=== PATIENT | female | born 1945 | race Caucasian/White ===

== ENCOUNTER 2022-06-30 19:41 | Emergency (ER) | payer OTHER ==
--- OUTSIDE RECORDS SUMMARY | 2022-06-30 19:46 | XMS REPORT | Continuity of Care Document ---
:1945 Author Organization [facility] t Address [address] [place] [address] Care Team Providers Name Role Phone Ephraim Anaya MD Primary Care Physician ARIANA MONTANA Attending Clinician Unavailable Ephraim Anaya MD Attending Clinician [facility] Attending Clinician Unavailable Kena Brody DO Attending Clinician [phone] Neha Cuevas Attending Clinician [phone] Evelyn Blake Attending Clinician [phone] Izzy Martinez PT Attending Clinician Unavailable Kavitha Kessler PT Attending Clinician Unavailable Jose A Jacobsen MA Attending Clinician Unavailable Carlos Le V Attending Clinician Unavailable Christine Morley DO Attending Clinician Hernán Epstein MD Attending Clinician SAMUEL REMY Attending Clinician Unavailable Jaron Attending Clinician Unavailable Rahul Attending Clinician Unavailable Samuel Remy MD Attending Clinician LAB08 Attending Clinician Unavailable Abeba Carrillo MA Attending Clinician Unavailable Meli Lund RN Attending Clinician Unavailable Ursula Colon Attending Clinician NAN, BENNET, M.D. Attending Clinician Unavailable JUANCARLOS RAZA M.D. Attending Clinician Unavailable HERBER PICHARDO M.D. Attending Clinician Unavailable SE, ECHO Attending Clinician Unavailable STEVE_EDWARDLATRICE_RobertoM Admitting Clinician Unavailable Physician, No Primary or Family Admitting Clinician Unavaila ricky Fulton_H Admitting Clinician Unavailable Rahul Admitting Clinician Unavailable Payers Payer Name Policy Type Policy Number Effective Date Expiration Date S samuel MEDICARE PART A [id number] 2011 AND B 00:00:00 [place]ICARE B-[place]: [id number] 2011 [employer] 00:00:00 MUTUAL PALOMA [id number] 2021 (MEDICARE 00:00:00 SUPPLEMENT) KCA MAPD - O 7 [id number] 2021 2020 R2T 00:00:00 Problems Condition Condition Condition Status Onset Resolution Last Treating Co mments Source Name Details Category Date Date Treatment Clinician Date Right-side Right-side Disease Active U T d low back d low back 04-18 He alth pain pain 00:00: without without 00 sciatica sciatica Encounter Encounter Disease Active [facility] for for 04-18 Health screening screening 00:00: for for 00 coronary coronary artery artery disease disease Hypertensi Hypertensi Disease Active U T ve heart ve heart 04-18 Health disease disease 00:00: without without 00 heart heart failure failure Strain of Strain of Disease Active [facility] thoracic thoracic 5-16 st spine spine 00:00: Hospita 00 l Mid back Mid back Disease Active Metho di pain on pain on 5-16 st left side left side 00:00: Hosp jamar 00 l Back Back Disease Active [facility] muscle muscle 5-16 st spasm spasm 00:00: Hospita 00 l Prediabete Prediabete Disease Active M ethodi s s 5-10 st 00:00: Hospita 00 l Rib pain Rib pain Disease Active Metho di on left on left 4-20 st side side 00:00: Hospita 00 l Hypertensi Hypertensi Disease Active K elsey on on 06-23 Seybold 00:00: 00 Hypothyroi Hypothyroi Disease Active M ethodi dism dism 06-23 st 00:00: Hospita 00 l Disorder Disorder Disease Active [facility] of thyroid of thyroid 06-17 He alth 00:00: 00 Chronic Chronic Disease Active [facility]i venous venous 06-17 st insufficie insufficie 00:00: Ho spita ncy ncy 00 l Dyslipidem Dyslipidem Disease Active M ethodi ia ia 06-17 st 00:00: Hospita 00 l Essential Essential Disease Active Met hodi (primary) (primary) 06-17 st hypertensi hypertensi 00:00: Ho spita on on 00 l Left Left Disease Active [facility] ventricula ventricula 06-17 st r r 00:00: Hospita hypertroph hypertroph 00 l y y Plantar Plantar Problem Active 2015-06-19 M emoria Fasciitis Fasciitis 02:45:49 l Active Jose Problem 06/19/2015 [facility] History of History of Problem Resolve UT Osteoarthr Osteoarthr d Ph ysici itis itis ans History of History of Problem Resolve UT essential essential d Phys ici hypertensi hypertensi an s on on History of History of Problem Resolve UT hypothyroi hypothyroi d Ph ysici dism dism ans Essential Essential Problem Active UT (primary) (primary) Phys ici hypertensi hypertensi an s on on Disorder Disorder Problem Active [facility] of thyroid of thyroid Ph ysici ans Left Left Problem Active UT ventricula ventricula Ph ysici r r ans hypertroph hypertroph y y Dyslipidem Dyslipidem Problem Active U T ia ia Physici ans Chronic Chronic Problem Active UT venous venous Physici insufficie insufficie an s ncy ncy Achilles - Achilles Problem Active 2015-06-19 Memoria Equinus - Equinus 02:45:49 l Active Jeddo Problem 06/19/2015 [facility] Instabilit Instabili Problem Active 2015-06-19 Memoria y Foot ty Foot 02:45:49 l Joint Joint Jeddo Active Problem 06/19/2015 [facility] Allergies, Adverse Reactions, Alerts Allergy Allergy Status Severity Reaction(s) Onset Inactive Treating Comm ents Source Name Type Date Date Clinician No Known DA Active [facility] Family History Family Member Diagnosis Comments Start Date Stop Date Source Mother Family history of [facility] Natural brother Cancer [facility] Natural father No Known Problems [facility] Natural mother Cancer [facility] Family member Heart disease [facility] Social History Social Habit Start Date Stop Date Quantity Comments Source Exposure to Not sure Griselda rivas SARS-CoV-2 (event) History [facility] Drinks History [facility] Tobacco use and 2022-04-18 2022-04-18 Smokeless tobacco [facility] exposure 00:00:00 00:00:00 non-user Alcohol intake 2022-03-14 2022-03-14 Lifetime [facility] 00:00:00 00:00:00 non-drinker Hospital (finding) History SDOH 2021-01-08 2021-01-08 1 [facility] Alcohol Frequency 00:00:00 00:00:00 Hospita l Jessie? 2015-03-18 2015-03-18 [facility] 00:00:00 00:00:00 Sex [birth year] [facility] 00:00:[facility] 00:00:00 Hospital Smoking Status Start Date Stop Date Source Never smoked tobacco [facility] Unknown if ever smoked [facility] Medications Ordered Filled Start Stop Current Ordering Indication Dosage Frequency Signature Comments Components Source Medication Medication Date Date Medication? Clinician (SIG) Name Name traMADol-ac 2021- No [id number] 1{tbl} Q8H Take 1 [facility] etaminophen 04-21 07-14 tablet by (Ultracet) 00:00: 04:59 mouth Hospi ta 37.5-325 mg 00 :00 every 8 l per tablet (eight) hours as needed for moderate pain for up to 5 days .acute pain. Aspirin Yes 1{tbl} QD Take 1 UT Buf,CaCarb- 7-05 tablet by [facility] MgCarb-MgO, 10:49: mouth 1 81 MG 55 (one) time tablet each day. levothyroxi Yes 100ug QD Take 100 U T ne 7-05 mcg by [facility] (Synthroid, 10:49: mouth 1 Levoxyl) 55 (one) time 100 MCG each day. tablet cyclobenzap 2021- Yes [id number] 5mg Q.[id number] Take 1 UT rine 7-05 07-20 [id number] tablet (5 Hea lth (Flexeril) 00:00: 04:59 3D mg total) 5 MG tablet 00 :00 by mouth 3 (three) times a day if needed for muscle spasms for up to 14 days. traMADol-[place] 2021- [place] [id number] 1{tbl} Q6H Take 1 Methodi etaminophen 6-14 06-[address] (ULTRACET) 16:30: 00:00 mouth Hospi ta 37.5-325 mg 02 :00 every 6 l per tablet (six) hours as needed for moderate pain .acute pain. traMADol-ac 2021- No TAKE 1 Met hodi etaminophen 6-14 06-[address] (ULTRACET) 00:00: 04:59 MOUTH 8 Hos john 37.5-325 mg 00 :00 HOURS l per tablet NEEDED FOR PAIN WITH FOOD losartan-hy Yes [id number] 1{tbl} QD Take 1 UT droCHLOROth 6-08 tablet by Hea lth iazide 00:00: mouth 1 (Hyzaar) 00 (one) time 50-12.5 MG each day. tablet Must keep 04/18/22 appointmen t. No further refills will be provided losartan Yes 100mg QD Take 100 Meth angelica (COZAAR) 5-[address] 100 MG 14:41: mouth Hospita tablet 41 daily. l levothyroxi Yes 100ug QD Take 100 M ethodi ne 5-[address] (SYNTHROID) 14:41: mouth Hospi ta 100 mcg 41 daily. l tablet nitrofurant 2021- No [id number] 100mg Q.5D Take 1 Methodi oin, 5-31 06-[address] macrocrysta 00:00: 04:59 (100 mg Ho spita l-monohydra 00 :00 total) by l te, mouth 2 (Macrobid) (two) 100 MG times a capsule day for 5 days. phenazopyri 2021- No [id number] 200mg Q.10025864 Take 1 Methodi dine 5-31 06-[id number] (Pyridium) 00:00: 04:59 3D (200 mg Hos john 200 MG 00 :00 total) by l tablet mouth 3 (three) times a day as needed for bladder spasms for up to 3 days. traMADol-ac 2021- [place] [id number] 1{tbl} Q8H Take 1 Methodi etaminophen 5-18 05-[address] (Ultracet) 00:00: 04:59 mouth Hospi ta 37.5-325 mg 00 :00 every 8 l per tablet (eight) hours as needed for moderate pain (with food) for up to 7 days .acute pain. gabapentin Yes [id number] 300mg QD Take 1 Methodi (Neurontin) 5-[address] 300 mg 00:00: (300 mg Hospita capsule 00 total) by l mouth nightly. meloxicam Yes [id number] 15mg QD Take 1 M ethodi (Mobic) 15 5-10 tablet (15 st mg tablet 00:00: mg total) Hos john 00 by mouth l every morning. WITH food PRN back pain acetaminoph 2021- No [id number] 1{tbl} Q6H Take 1 Methodi en-codeine 4-21 -[address] (TYLENOL 00:00: 04:59 mouth Hospita WITH 00 :00 every 6 l CODEINE #3) (six) 300-30 mg hours as per tablet needed for moderate pain for up to 5 days .acute pain. keTOROlac 2021- No 10mg Q.[id number] Take 1 Methodi (TORadol) 4-20 -26 [id number] tablet (10 st 10 mg 00:00: 04:59 3D mg total) Hospit a tablet 00 :00 by mouth 3 l (three) times a day for 5 days. Tramadol 2020-10 Yes 50mg Take 50 mg Gaurav sey HCl 50 MG 0-13 by mouth Seybol d oral Tablet 14:38: as needed 57 for pain Losartan 2020-10 Yes 1{tbl} Take 1 Kelse y Potassium-H 0-13 tablet by Sey bold CTZ 50-12.5 14:38: mouth MG oral 48 daily Tablet Multiple 2020-10 Yes 1{tbl} Take 1 Kelse y Vitamins-Mi 0-13 tablet by Sey bold nerals 14:38: mouth (CENTRUM 48 daily SILVER 50+WOMEN OR) Aspirin 81 2020-10 Yes 1{capsu Take 1 Ke lsey MG oral 0-13 le} capsule by Seybol d Capsule 14:38: mouth 48 daily Simvastatin Yes [id number] 20mg Take 1 Griselda 20 MG oral 9-28 tablet (20 Sey bold Tablet 00:00: mg total) 00 by mouth daily Levothyroxi 2020- No 100ug Take 100 Griselda ne Sodium 06-23- mcg by Seybold 100 MCG 10:21: 00:00 mouth oral Tablet 46 :00 daily Losartan 2020- No 100mg Take 100 Gaurav sey Potassium 06-23- mg by Seybold 100 MG oral 10:08: 00:00 mouth Tablet 22 :00 daily Tramadol Yes 50mg Take 50 mg Gaurav sey HCl 50 MG 06-23 by mouth Seybol d oral Tablet 09:59: as needed 50 for pain Losartan Yes 1{tbl} Take 1 Kelse y Potassium-H - tablet by Isreal bold CTZ 50-12.5 09:59: mouth MG oral 43 daily Tablet Multiple Yes 1{tbl} Take 1 Kelse y Vitamins-Mi 9- tablet by Sey bold nerals 09:59: mouth (CENTRUM 43 daily SILVER 50+WOMEN OR) Aspirin 81 Yes 1{capsu Take 1 Ke lsey MG oral 9 le} capsule by Seybol d Capsule 09:59: mouth 43 daily Levothyroxi Yes [id number] 100ug Take 1 Griselda ne Sodium - tablet Seybold 100 MCG 00:00: (100 mcg oral Tablet 00 total) by mouth daily Levothyroxi Yes [id number] 100ug Take 1 Griselda ne Sodium - tablet Seybold 100 MCG 00:00: (100 mcg oral Tablet 00 total) by mouth daily Aspirin Yes 1{tbl} QD Take 1 UT Buf,CaCarb- 8-25 tablet by [facility] MgCarb-MgO, 19:49: mouth 1 81 MG 35 (one) time tablet each day. levothyroxi Yes 100ug QD Take 100 U T ne 8-25 mcg by Health (Synthroid, 19:49: mouth 1 Levoxyl) 35 (one) time 100 MCG each day. tablet losartan-hy Yes [id number] 1{tbl} QD Take 1 UT droCHLOROth 6-25 tablet by [facility] iazide 00:00: mouth 1 (Hyzaar) 00 (one) time 50-12.5 MG each day. tablet losartan-hy Yes [id number] 1{tbl} QD Take 1 UT droCHLOROth 6-25 tablet by [facility] iazide 00:00: mouth 1 (Hyzaar) 00 (one) time 50-12.5 MG each day. tablet losartan Yes 100mg QD Take 100 Meth angelica (COZAAR) 3-[address] 100 MG 00:03: mouth Hospita tablet 30 daily. l levothyroxi Yes 100ug QD Take 100 M ethodi ne 3-[address] (SYNTHROID) 00:03: mouth Hospi ta 100 mcg 30 daily. l tablet nitrofurant 2020- No 100mg Q.5D Take 1 Me thodi oin, 3 04-[address] macrocrysta 00:00: 04:59 (100 mg Ho spita l-monohydra 00 :00 total) by l te, mouth 2 (MACROBID) (two) 100 MG times a capsule day for 10 days. traMADoL 2020- No [id number] 50mg Q6H Take 1 Metho di (ULTRAM) 50 327 03-31 tablet (50 s t mg tablet 00:00: 04:59 mg total) Ho spita 00 :00 by mouth l every 6 (six) hours as needed for moderate pain for up to 3 days .acute pain. traMADol traMADol Yes TURF KEEPER Q0.3333D TAKE 1 UT HCl - 50 MG HCl - 50 MG 2-22 TABLET 3 Physici Oral Tablet Oral Tablet 00:00: TIMES ans 00 DAILY NEEDED. traMADol Yes 50mg Q.[id number] Take 50 mg UT (Ultram) 50 2- [id number] by mouth 3 Health MG tablet 00:00: 3D (three) 00 times a day. traMADol 2021- No 50mg Q.[id number] Take 50 mg UT (Ultram) 50 2- 07-05 [id number] by mouth 3 Health MG tablet 00:00: 00:00 3D (three) 00 :00 times a day. losartan-hy 2020- No 1{tbl} QD Take 1 U T droCHLOROth 12-06 06-25 tablet by Elijah montez iazide 00:00: 00:00 mouth 1 (Hyzaar) 00 :00 (one) time 50-12.5 MG each day. tablet Voltaren-XR Yes Ruddy 1 tablet Memoria 06-18 Thao l 00:00: Jeddo 00 Voltaren-XR Yes Ruddy 1 tablet Memoria 06-18 Thao l 00:00: Jose 00 Losartan Losartan Yes BENNET TAKE 1 U T Potassium-H Potassium-H 11-15 NAN TABLET Physici CTZ 50-12.5 CTZ 50-12.5 00:00: M.D. Daily ans MG Oral MG Oral 00 MUST Tablet Tablet MAKE APPOINTMEN T FOR MORE REFILLS Levothyroxi Levothyroxi Yes TURF KEEPER 1 QD TAKE 1 UT ne Sodium ne Sodium TABLET Phy sici 100 MCG 100 MCG DAILY. ans Oral Tablet Oral Tablet Aspirin 81 Aspirin 81 Yes TURF KEEPER 1 QD TAKE 1 U T MG TABS MG TABS TABLET Physici DAILY. ans Immunizations Ordered Immunization Filled Immunization Date Status Commen ts Source Name Name Pneumococcal Vaccine, 2021-07-27 Completed Gaurav Beasleyold Polysaccharide 00:00:00 Pneumococcal 2021-07-27 Completed [facility] Polysaccharide 00:00:00 [facility] PFIZER COVID-19 MRNA 2021-07-19 Completed Meth odist VACCINATION 00:00:00 [facility] Influenza Virus 2021-06-23 Completed Griselda singh Vaccine, 00:00:00 Quadrivalent, High Dose, Age 65 And Up Influenza Virus 2021-06-23 Completed Griselda singh Vaccine, 00:00:00 Quadrivalent, High Dose, Age 65 And Up Influenza, 2021-06-23 Completed [facility] Unspecified 00:00:00 Hospital PFIZER COVID-19 MRNA 2020-12-11 Completed Meth odist VACCINATION 00:00:00 Hospital PFIZER COVID-19 MRNA 2020-11-20 Completed Meth odist VACCINATION 00:00:00 [facility] Influenza Virus 2017-07-31 Completed Griselda Se ybold Vaccine, Quad, Egg 00:00:00 Free Influenza Virus 2017-07-31 Completed Griselda Se ybold Vaccine, Quad, Egg 00:00:00 Free FLUBLOK QUAD PF 2017-07-31 Completed [facility] 00:[facility]:00 [facility] Vital Signs Vital Name Observation Time Observation Value Comments Source Body height 2022-04-18 170.2 cm [facility] 15:50:00 Body weight 2022-04-18 79.833 kg [facility] 15:50:00 BMI 2022-04-18 27.57 kg/m2 [facility] 15:50:00 Systolic blood 2022-04-18 137 mm[Hg] [facility] pressure 15:50:00 Diastolic blood 2022-04-18 85 mm[Hg] [facility] pressure 15:50:00 Heart rate 2022-04-18 81 /min [facility] 15:50:00 Systolic blood 2021-07-27 144 mm[Hg] Griselda Seybol d pressure 19:37:00 Diastolic blood 2021-07-27 70 mm[Hg] Griselda Seybo ld pressure 19:37:00 Heart rate 2021-07-27 82 /min Griselda Seybold 19:37:00 Body temperature 2021-07-27 36.72 Celsa Griselda Duarteyb old 19:37:00 Respiratory rate 2021-07-27 18 /min Griselda Duarteyb old 19:37:00 Body height 2021-07-27 170.2 cm Griselda Seybold 19:37:00 Body weight 2021-07-27 79.833 kg Griselda Seybold 19:37:00 BMI 2021-07-27 27.57 kg/m2 Griselda Seybold 19:37:00 Systolic blood 2021-06-23 159 mm[Hg] Griselda Seybol d pressure 15:04:00 Diastolic blood 2021-06-23 76 mm[Hg] Griselda Seybo ld pressure 15:04:00 Heart rate 2021-06-23 87 /min Griselda Valencia 15:04:00 Body temperature 2021-06-23 36.67 Celsa Griselda Beasley old 15:04:00 Respiratory rate 2021-06-23 16 /min Griselda Beasley old 15:04:00 Body height 2021-06-23 170.2 cm Griselda Valencia 15:04:00 Body weight 2021-06-23 78.019 kg Griselda Valencia 15:04:00 BMI 2021-06-23 26.94 kg/m2 Griselda Valencia 15:04:00 Body weight 2022-03-14 78.472 kg [facility] 19:49:00 [facility] BMI 2022-03-14 27.10 kg/m2 [facility] 19:49:00 Hospital Oxygen saturation 2022-03-14 98 /min [facility] in Arterial blood 19:49:00 Hospital by Pulse oximetry Systolic blood 2022-03-14 129 mm[Hg] [facility] pressure 19:49:00 Hospital Diastolic blood 2022-03-14 82 mm[Hg] [facility] pressure 19:49:00 Hospital Heart rate 2022-03-14 100 /min [facility] 19:49:00 Hospital Body temperature 2022-03-14 36.44 Celsa [facility] 19:49:00 Hospital Body height 2022-03-14 170.2 cm [facility] 19:49:00 [facility] Respiratory rate 2022-02-02 16 /min [facility] 17:04:24 [facility] Systolic blood 2021-01-09 157 mm[Hg] [facility] pressure 02:52:35 Hospital Diastolic blood 2021-01-09 77 mm[Hg] [facility] pressure 02:52:35 Hospital Heart rate 2021-01-09 67 /min [facility] 02:52:35 Hospital Body temperature 2021-01-09 36.61 Celsa [facility] 02:52:35 Hospital Respiratory rate 2021-01-09 16 /min [facility] 02:52:35 Hospital Oxygen saturation 2021-01-09 98 /min [facility] in Arterial blood 02:52:35 Hospital by Pulse oximetry Body height 2021-01-09 170.2 cm [facility] 00:01:00 Hospital Body weight 2021-01-09 78.472 kg [facility] 00:01:00 Hospital BMI 2021-01-09 27.10 kg/m2 [facility] 00:[facility]:00 [facility] Systolic blood 2020-12-06 128 mm[Hg] [facility] L[facility] pressure 15:06:00 Position: Sitting Diastolic blood 2020-12-06 83 mm[Hg] [facility] pressure 15:06:00 Position: Sitting Body height 2020-12-06 67 [in_us] [facility] 15:06:00 Weight 2020-12-06 178 [lb_av] [facility] 15:06:00 Body mass index 2020-12-06 27.88 kg/m2 [facility] (BMI) [Ratio] 15:06:00 Heart Rate 2020-12-06 89 /min Location: L [facility] 15:06:00 Radial; Quality: Normal BP Systolic 2019-06-17 166 mm[Hg] Location: RUE; [facility] 09:25:00 Position: Sitting BP Diastolic 2019-06-17 86 mm[Hg] Location: RUE; [facility] 09:25:00 Position: Sitting Height 2019-06-17 67 [in_us] [facility] 09:25:00 Weight 2019-06-17 179 [lb_av] [facility] 09:25:00 Body Mass Index 2019-06-17 28.04 kg/m2 [facility] Calculated 09:25:00 Heart Rate 2019-06-17 75 /min Location: L [facility] 09:25:00 Radial; Quality: Normal BP Systolic 2018-11-08 130 mm[Hg] [facility] 11:05:00 BP Diastolic 2018-11-08 80 mm[Hg] [facility] 11:05:00 Height 2018-11-08 67 [in_us] [facility] 11:05:00 Weight 2018-11-08 178 [lb_av] [facility] 11:05:00 Body Mass Index 2018-11-08 27.88 kg/m2 [facility] Calculated 11:05:00 Heart Rate 2018-11-08 84 /min [facility] 11:05:00 BP Systolic 2018-04-02 140 mm[Hg] [facility] 10:29:00 BP Diastolic 2018-04-02 82 mm[Hg] [facility] 10:29:00 Height 2018-04-02 67 [in_us] [facility] 10:29:00 Weight 2018-04-02 188 [lb_av] [facility] 10:29:00 Body Mass Index 2018-04-02 29.45 kg/m2 [facility] Calculated 10:29:00 Heart Rate 2018-04-02 82 /min [facility] 10:29:00 Procedures Procedure Date / Time Performing Clinician Source Performed ECG 12-LEAD 2022-04-18 16:25:28 Chris Montananet [facility] URINE CULTURE 2022-03-14 20:03:00 [facility] XR THORACIC SPINE 3 VW 2022-02-23 14:23:00 [facility] CT CHEST WO CONTRAST 2022-02-01 20:18:24 Hernán Epstein [facility] CT ABDOMEN PELVIS WO 2021-01-09 01:56:34 [facility] CONTRAST ECG ED PRELIMINARY 2021-01-09 00:18:20 [facility] INTERPRETATION HC COMPLETE BLD COUNT 2021-01-09 00:15:00 [facility] W/AUTO DIFF COMPREHENSIVE METABOLIC 2021-01-09 00:15:00 [facility] PANEL URINALYSIS 2021-01-09 00:15:00 [facility] ESTIMATED GFR 2021-01-09 00:15:00 [facility] [QL] B TYPE NATRIURETIC 2020-12-06 00:00:00 [facility] PEPTIDE (BNP) [QLH] B TYPE NATRIURETIC 2018-04-02 00:00:00 [facility] PEPTIDE (BNP) [QLH] CBC (INCLUDES 2018-04-02 00:00:00 [facility] DIFF/PLT) [QLH] CMP W/EGFR 2018-04-02 00:00:00 [facility] [QLH] HEMOGLOBIN A1c 2018-04-02 00:00:00 [facility] [QLH] LIPID PANEL 2018-04-02 00:00:00 [facility] [QL[facility]] MAGNESIUM 2018-04-02 00:00:00 [facility] [QL[facility]] TSH, 3RD GENERATION 2018-04-02 00:00:00 [facility] History of Thyroid [facility] History of Knee Surgery [facility] Plan of Care Planned Activity Planned Date Details Comments Source Future Scheduled 2022-06-27 HEPATITIS B VACCINES [facility] Test 10:33:28 (1 of 3 - 3-dose series) [code = HEPATITIS B VACCINES (1 of 3 - 3-dose series)] Future Scheduled 2022-06-27 Hepatitis C screening [facility] Test 10:33:28 (procedure) [code = 824370388] Future Scheduled 2022-06-27 [facility]CER [facility] Test 10:33:28 SCREENING [code = BREAST CANCER SCREENING] Future Scheduled 2022-06-27 COLONOSCOPY SCREENING [facility] Test 10:33:28 [code = COLONOSCOPY SCREENING] Future Scheduled 2022-06-27 SHINGLES VACCINES (1 [facility] Test 10:33:28 of 2) [code = SHINGLES VACCINES (1 of 2)] Future Scheduled 2022-06-27 COVID-19 VACCINE (4 - [facility] Test 10:33:28 Booster for Pfizer series) [code = COVID-19 VACCINE (4 - Booster for Pfizer series)] Future Scheduled 2022-06-27 INFLUENZA VACCINE [facility] Test 10:33:28 [code = INFLUENZA VACCINE] Future Scheduled 2022-06-27 65+ [facility]UMOCOCCAL [facility] Test 10:33:28 VACCINE (2 - PCV) [code = 65+ PNEUMOCOCCAL VACCINE (2 - PCV)] Future Scheduled COVID-19 VACCINE (1) [facility] Test [code = COVID-19 VACCINE (1)] Future Scheduled Hepatitis C screening [facility] Test (procedure) [code = 224077030] Future Scheduled BREAST CANCER [facility] Test SCREENING [code = BREAST CANCER SCREENING] Future Scheduled COLONOSCOPY SCREENING [facility] Test [code = COLONOSCOPY SCREENING] Future Scheduled SHINGLES VACCINES (#1) [facility] Test [code = SHINGLES VACCINES (#1)] Future Scheduled 65+ [facility]UMOCOCCAL [facility] Test VACCINE (1 of 1 - PPSV23) [code = 65+ PNEUMOCOCCAL VACCINE (1 of 1 - PPSV23)] Future Scheduled INFLUENZA VACCINE [facility] Test [code = INFLUENZA VACCINE] Encounters Start End Encounter Admission Attending Care Care Encounter Source Date/Time Date/Time Type Type Clinicians Facility Department ID 2022-05-10 [facility] [id number] [place] 03:17:44 [place] [id number] [facility] 2022-05-09 Outpatient [facility] [id number] [place] 12:08:08 [id number] [facility] 2022-04-18 Outpatient NAN, [facility] [id number] [place] 10:41:44 [facility] [id number] [facility] 2022-04-10 Outpatient [facility] [id number] [place] 11:20:58 [id number] [facility] 2022-02-14 Outpatient [facility] [id number] [place] 10:10:17 [id number] [facility] 2021-02-19 Outpatient NAN, [facility] [id number] [place] 03:37:15 [facility] 2022-06-26 2022-06-26 Telephone Anaya, [id number] [facility] 00:00:00 00:00:00 Ephraim 13394.1.1 186 s t [place] 3.430.2.7 Hospit a .[id number] l .8 2022-06-26 2022-06-26 Travel 1.2.840.1 [id number] Methodi 00:00:00 00:00:[address] 3.430.2.7 0.2.7.3.698 Ho spita .[id number] 084.8 l .8 2022-06-18 2022-06-18 Outpatient [facility] PRIV PRIV [id number] [facility] 00:00:00 00:00:00 _Marisol [id number] [facility] 2022-06-09 2022-06-09 Outpatient [facility] PRIV PRIV [id number] [facility] 00:00:00 00:00:00 _Marisol [id number] [facility] 2022-06-07 2022-06-07 Orders Fidencio, 1.2.840.1 [id number] 28288 Methodi 00:00:00 00:00:00 Only Kena 32691.1.[address] [place] 3.430.2.7 Hospit a .3.030632 l .8 2022-06-07 2022-06-07 Refill Fidencio, 1.2.840.1 [id number] 02993 82651 Methodi 00:00:00 00:00:[address] [place] 3.430.2.7 Hospit a .3.241610 l .8 2022-05-29 2022-05-29 Outpatient _[facility] PRIV PRIV 237 [id number] [facility] 00:00:00 00:00:00 _Marisol [id number] [facility] 2022-05-21 2022-05-21 Outpatient _[facility] PRIV PRIV 237 [id number] [facility] 00:00:00 00:00:00 _Miller-Cristhian [id number] [facility] 2022-04-25 2022-04-25 Refirwin Anaya, 1.2.840.1 [id number] 2113 Methodi 00:00:00 00:00:00 Baldomerodenisse 99155.1.1 208 s t Rolanda 3.430.2.7 Hospit a .3.809681 l .8 2022-04-21 2022-04-21 Korin Brody, 1.2.840.1 [id number] 63519 37059 Methodi 00:00:00 00:00:00 Only Kena 25911.1.[address] [place] 3.430.2.7 Hospit a .3.884062 l .8 2022-04-21 2022-04-21 Refirwin Brody, 1.2.840.1 [id number] 83962 04534 Methodi 00:00:00 00:00:[address] [place] 3.430.2.7 Hospit a .3.900095 l .8 2022-04-18 2022-04-18 [facility] 1.2.840.114 [id number] 320 [place] 10:30:00 10:45:00 Visit [facility] 350.1.13.58 [place] [place] 2 9.2.7.2.686 [id number] 1 2022-04-18 2022-04-18 Travel 1.2.840.1 1.2.122.996 9376 350192 Methodi 00:00:00 00:00:[address] 3.430.2.7 0.2.7.3.698 Ho spita .3.654668 084.8 l .8 2022-04-14 2022-04-14 Outpatient [facility] PRIV PRIV 237 [id number] [facility] 11:36:00 11:36:00 _Marisol [id number] [facility] 2022-04-14 2022-04-14 Outpatient Mason, PRIV PRIV [id number] 00:00:00 00:00:00 [id number] 2022-04-13 2022-04-13 Outpatient [facility] PRIV PRIV 237 [id number] [facility] 09:57:00 09:57:00 _Marisol [id number] [facility] 2022-04-13 2022-04-13 Outpatient [facility] PRIV PRIV 573 [id number] 00:00:00 00:00:00 Evelyn castanon [id number] Chelita [id number] 2022-04-11 2022-04-11 Outpatient [facility] PR[facility] PRIV 237 [id number] [facility] 01:14:00 01:14:00 _Marisol [id number] [facility] 2022-04-11 2022-04-11 Outpatient [facility] PRIV PRIV [id number] 00:00:00 00:00:00 Evelyn castanon [id number] Cook [id number] 539207 2229-06-27 2022-04-10 Outpatient [facility] PRIV PRIV 237 [id number] [facility] 03:07:00 03:07:00 _Marisol [id number] [facility] 2022-04-03 2022-04-03 Treatment Kena Brody 1.2.840.1 [id number] Methodi 13:45:00 14:30:00 Izzy Martinez 20116.1.[address] 3.430.2.7 Hospit a .3.860122 l .8 2022-04-03 2022-04-03 Travel 1.2.840.1 1.2.775.599 2216 683538 Methodi 00:00:00 00:00:[address] 3.430.2.7 0.2.7.3.698 Ho spita .3.493368 084.8 l .8 2022-04-03 2022-04-03 Outpatient BRODY, [facility] [id number] 5034 [place] 00:00:00 00:00:00 KENA [address] 2022-03-29 2022-03-29 Evaluation BrodyKena castrejon 1.2.840. 1 [id number] Methodi 11:00:00 12:00:00 Kavitha Kessler [address]87.[address] 3.430.2.7 Hospit a .3.312393 l .8 2022-03-29 2022-03-29 Plan of 1.2.840.1 [id number] [id number] 1683 Methodi 00:00:00 00:00:[address] Documentat 3.430.2.7 Hos john ion .3.660735 l .8 2022-03-29 2022-03-29 Travel 1.2.840.1 1.2.492.821 5422 016852 Methodi 00:00:00 00:00:[address] 3.430.2.7 0.2.7.3.698 Ho spita .3.260796 084.8 l .8 2022-03-29 2022-03-29 Outpatient BRODY, [facility] [id number] 4196 [place] 00:00:00 00:00:00 KENA [address] 2022-03-28 2022-03-28 Orders Brody, 1.2.840.1 [id number] 37506 Methodi 00:00:00 00:00:00 Only Kena 78382.1.[address] [place] 3.430.2.7 Hospit a .3.618924 l .8 2022-03-28 2022-03-28 Refill Brody, 1.2.840.1 [id number] 21001 50222 Methodi 00:00:00 00:00:[address] [place] 3.430.2.7 Hospit a .3.328217 l .8 2022-03-21 2022-03-21 Telephone Héctor, 1.2.840.1 [id number] 2099 740078 Methodi 00:00:00 00:00:00 Ephraim 36077.1.1 [address] [place] 3.430.2.7 Hospit a .3.960139 l .8 2022-03-21 2022-03-21 Travel 1.2.840.1 1.2.840.459 0190 193271 Methodi 00:00:00 00:00:[address] 3.430.2.7 0.2.7.3.698 Ho spita .3.137601 084.8 l .8 2022-03-14 2022-03-14 Office Héctor, 1.2.840.1 [id number] 433436 5232 Methodi 14:40:00 15:07:09 Visit Ephraim 85287.1.1 401 [address] [place] 3.430.2.7 Hospit a .3.542125 l .8 2022-03-14 2022-03-14 Travel 1.2.840.1 1.2.851.649 3175 693256 Methodi 00:00:00 00:00:[address] 3.430.2.7 0.2.7.3.698 Ho spita .3.747808 084.8 l .8 2022-03-14 2022-03-14 Outpatient ANAYA, [facility] [id number] 161 [place] 00:00:00 00:00:00 EPHRAIM [address] 2022-03-01 2022-03-01 Telephone Delmar, 1.2.840.1 [id number] 21 [id number] Methodi 00:00:00 00:00:00 Jose A 47656.1.[address] 3.430.2.7 Hospit a .3.253199 l .8 2022-03-01 2022-03-01 Orders Delmar, 1.2.840.1 [id number] 2100 372532 Methodi 00:00:00 00:00:00 Only Jose A 73913.1.[address] 3.430.2.7 Hospit a .3.497889 l .8 2022-02-27 2022-02-27 Office Fidencio, 1.2.840.1 [id number] 15856 69424 Methodi 10:45:00 10:45:00 Visit Kena 64900.1.[address] [place] 3.430.2.7 Hospit a .3.877130 l .8 2022-02-27 2022-02-27 Travel 1.2.840.1 1.2.801.178 7777 255007 Methodi 00:00:00 00:00:[address] 3.430.2.7 0.2.7.3.698 Ho spita .3.226412 084.8 l .8 2022-02-27 2022-02-27 Outpatient BRODY, [facility] [id number] 8692 [place] 00:00:00 00:00:00 KENA [address] 2022-02-23 2022-02-[address] [facility], 1.2.840.1 [id number] 40359 63087 Methodi 08:55:45 23:59:00 Encounter Ephraim 31179.1.[address] [place] 3.430.2.7 Hospit a .3.396095 l .8 2022-02-23 2022-02-23 Travel 1.2.840.1 1.2.076.242 5675 413716 Methodi 00:00:00 00:00:[address] 3.430.2.7 0.2.7.3.698 Ho spita .3.652871 084.8 l .8 2022-02-23 2022-02-23 [facility]patient [facility] [id number] 004 [place] 00:00:00 00:00:00 EPHRAIM [address] 2022-02-212022-02-21 Office Anaya, 1.2.840.1 [id number] 588856 0423 Methodi 09:00:00 09:32:30 Visit Dimpleyolandaaletha 35256.1.1 [address] [place] 3.430.2.7 Hospit a .3.493313 l .8 2022-02-21 2022-02-21 Travel 1.2.840.1 1.2.133.638 2345 559266 Methodi 00:00:00 00:00:[address] 3.430.2.7 0.2.7.3.698 Ho spita .3.567850 084.8 l .8 2022-02-21 2022-02-21 Outpatient ANAYA, [facility] [id number] 545 [place] 00:00:00 00:00:00 EPHRAIM [address] 2022-02-17 2022-02-17 Emergency EM [facility], [facility] [id number] [facility] 09:03:00 10:35:[address] [place] [address] 2022-02-16 2022-02-16 Travel 1.2.840.1 1.2.952.652 4725 912631 Methodi 00:00:00 00:00:[address] 3.430.2.7 0.2.7.3.698 Ho spita .3.719585 084.8 l .8 2022-02-02 2022-02-02 Emergency Svach, 1.2.840.1 [id number] 2100 227662 Methodi 12:03:00 12:28:00 Christine R [address]653.1.[address] 3.430.2.7 Hospit a .3.188358 l .8 2022-02-02 2022-02-02 Emergency SVACH, [facility] 064 [id number] 89 [place] 00:00:00 00:00:00 CHRISTINE [address] 2022-02-01 2022-02-01 [facility], 1.2.840.1 [id number] 19993 09299 Methodi 14:56:39 23:59:00 Encounter Hernán 14940.1.[address] 3.430.2.7 Hospit a .3.875554 l .8 2022-02-01 2022-02-01 Emergency Melissa, 1.2.840.1 [id number] 2099518 Methodi 14:42:00 16:24:00 Hernán [address].1.[address] 3.430.2.7 Hospit a .3.466083 l .8 2022-02-01 2022-02-01 Travel 1.2.840.1 1.2.727.655 9601 648292 Methodi 00:00:00 00:00:[address] 3.430.2.7 0.2.7.3.698 Ho spita .3.103389 084.8 l .8 2022-02-01 2022-02-01 [facility] 064 [id number] 18 [place] 00:00:00 00:00:00 HERNÁN [address] 2022-02-01 2022-02-01 [facility] [id number] 20 [place] 00:00:00 00:00:00 HERNÁN [address] 2021-12-19 2021-12-19 Outpatient _[facility] PRIV PRIV 237 [id number] [facility] 03:51:00 03:51:00 _Marisol [id number] [facility] 2021-12-19 2021-12-19 Outpatient SANDRITA CAMP 107 [id number] Griselda 00:00:00 00:00:00 , SAMUEL Seybol d 2021-12-15 2021-12-15 Outpatient SANDRITA CAMP 107 [id number] Griselda 00:00:00 00:00:00 , SAMUEL Seybol d 2021-12-14 2021-12-14 Outpatient [facility] VFP VFP [id number] [facility] 06:58:00 06:58:00 [id number] Family Practic e 2021-11-17 2021-11-17 Outpatient SANDRITA CAMP 106 [id number] Griselda 00:00:00 00:00:00 , SAMUEL Seybol d 2021-10-27 2021-10-27 Outpatient MERRICKNAKIA GRISELDA CAMP 103 [id number] Griselda 10:30:00 10:30:00 , SAMUEL Seybol d 2021-09-13 2021-09-13 Outpatient Trent_C VFP VFP [id number] [facility] 09:39:00 09:39:00 [id number] Family Practic e 2021-07-27 2021-07-27 Office Sandrita KEATINGA 1.2.840.114 1 [id number] Griselda 14:31:13 14:46:13 Visit , Samuel 350.1.13.13 Se ybold 1.2.7.2.686 [id number] 0 2021-07-12 2021-07-12 Outpatient MERRICKNAKIA GRISELDA CAMP 102 [id number] Griselda 00:00:00 00:00:00 , SAMUEL Seybol d 2021-07-07 2021-07-07 Outpatient LAB08 GRISELDA CAMP [id number] 85 Griselda 10:20:00 10:20:00 Seybol d 2021-06-30 2021-06-30 Outpatient UDTORITONAKIA GRISELDA CAMP 102 [id number] Griselda 00:00:00 00:00:00 , SAMUEL Seybol d 2021-06-27 2021-06-27 Outpatient GRISELDA CAMP [id number] Griselda 09:00:00 09:00:00 Seybol d 2021-06-23 2021-06-23 Office Sandrita MALUADENA 1.2.840.114 1 [id number] Griselda 09:49:09 10:34:09 Visit , Samuel 350.1.13.13 Se ybold 1.2.7.2.686 [id number] 0 2021-06-08 2021-06-08 Abstract Abeba Carrillo [facility] 1.2.84 0.114 [id number] [place] 00:00:00 00:00:00 Abeba Carrillo SE MED 350.1.13.58 Health PLAZA 2 9.2.7.2.686 [id number] 1 2021-06-08 2021-06-08 Guillermo Carrillo [facility] 1.2.840.114 126 [id number] 00:00:00 00:00:00 [place] SE MED 350.1.13.58 PLAZA 2 9.2.7.2.686 [id number] 1 2021-04-08 2021-04-08 Refill Meli Lund [facility] 1.2.840.114 12 [id number] [place] 00:00:00 00:00:00 Meli Lund SE MED 350.1.13.58 Health PLAZA 2 9.2.7.2.686 [id number] 1 2021-04-08 2021-04-08 Refill Meli Lund [facility] 1.2.840.114 12 [id number] 00:00:00 00:00:00 SE MED 350.1.13.58 PLAZA 2 9.2.7.2.686 [id number] 1 2021-01-08 2021-01-08 Hospital Colon, 1.2.840.1 [id number] 10040 49908 Methodi 20:41:41 23:59:00 Encounter Aranyanee 04544.1.[address] 3.430.2.7 Hospit a .3.567678 l .8 2021-01-08 2021-01-08 Emergency Colon, 1.2.840.1 [id number] 2099 [id number] Methodi 19:00:00 21:50:[address] 3.430.2.7 Hospit a .3.052381 l .8 2021-01-08 2021-01-08 Travel 1.2.840.1 1.2.620.815 3253 933303 Methodi 00:00:00 00:00:[address] 3.430.2.7 0.2.7.3.698 Ho spita .3.149662 084.8 l .8 2020-12-06 2020-12-06 AppointEDITH Guevara [facility] [id number] 0557 [place] 15:00:00 15:00:00 t; ARIANA [place]TANA, Advanced Ph ysmarquita LANE M.D. Heart ans MBrian [facility] 2019-12-22 2019-12-22 [facility] [id number] [place] 10:30:00 10:30:00 t; ARIANA [place] Phy sici BENNET, M.D. ans M.Chidi 2019-12-22 2019-12-22 Appointjaison [place] [facility] [id number] [id number] [place] 10:15:00 10:15:00 t; ARIANA MONTANA Advanced Ph ysici BENNET, M.D. Heart ans MBrian [facility] 2019-12-22 2019-12-22 [facility] [id number] [place] 09:00:00 09:00:00 t; ARIANA [place]NA Phy sici BENNET, M.D. ans Brayan 2019-06-17 2019-06-17 [facility] [id number] [place] 09:00:00 09:00:00 t; ARIANA MONTANA Advanced Ph ysici BENNET, M.D. Heart ans Brayan [facility] 2019-06-17 2019-06-17 [facility] [id number] [place] 09:00:00 09:00:00 t; ARIANA MONTANA Phy sici BENNET, M.D. ans M.D. 2019-05-08 2019-05-08 [facility]Z [facility] [id number] [place] 09:30:00 09:30:00 t; Marci BAUER i, M.D., ANGELO, M.D. 2018-11-08 2018-11-08 [facility] Cardiology [id number] [place] 10:50:00 10:50:00 t; LIZ SHERIDAN at Ph HERBER Duncan M.D. [facility] a daphney CRAVEN M.D. 2018-09-26 2018-09-26 [facility] Cardiology [id number] [place] 09:00:00 09:00:00 t; LIZ SHERIDAN at Ph HERBER Duncan M.D. [facility] a daphney CRAVEN M.D. 2018-09-16 2018-09-16 [facility] Cardiology [id number] [place] 15:10:00 15:10:00 t; LIZ SHERIDAN, at Ph HERBER Duncan M.D. [facility] a daphney CRAVEN M.D. 2018-08-16 2018-08-16 Appointmen [facility] Cardiology [id number] [id number] [place] 09:00:00 09:00:00 t; LIZ SHERIDAN at Ph HERBER Duncan M.D. [facility] a daphney CRAVEN M.D. 2018-05-14 2018-05-14 Appointmen [facility] Cardiology [id number] [id number] [place] 09:45:00 09:45:00 t; LIZ SHERIDAN at Ph HERBER Duncan M.D. [facility] a daphney CRAVEN M.D. 2018-05-14 2018-05-14 Appointmen [facility] Cardiology [id number] [place] 08:45:00 08:45:00 t; LIZ SHERIDAN at [facility] HERBER Duncan M.D. [facility] a daphney CRAVEN M.D. 2018-04-03 2018-04-03 Appointmen [facility] [id number] [place] 14:00:00 14:00:00 t; Justine PICHARDO JORGE, M.D. ans JORGE, M.D. 2018-04-02 2018-04-02 Appointmen [facility] Cardiology [id number] [place] 10:10:00 10:10:00 t; LIZ SHERIDAN at [facility] HERBER Duncan M.D. [facility] cyn CRAVEN M.D. 2017-04-09 2017-04-09 Appointmen [facility] UTP [id number] [place] 16:00:00 16:00:00 t; Justine PICHARDO JORGE, M.D. ans JORGE, M.D. 2017-04-04 2017-04-04 Appointmen [facility] [id number] [place] 10:30:00 10:30:00 t; Justine PICHARDO JORGE, M.D. ans JORGE, M.D. 2016-12-19 2016-12-19 [facility] UTP [id number] [place] 10:00:00 10:00:00 t; LIZ SHERIDAN, HERBER Emerson M.D. ans JORGE, M.D. 2016-09-18 2016-09-18 Appointmen SE, ECHO [facility]TP [id number] [place] 11:00:00 11:00:00 t; SE, Physic i ECHO ans 2016-06-20 2016[facility]06-20 [facility] [id number] [place] 10:15:00 10:15:00 t; LIZ SHERIDAN, HERBER Emerson M.D. ans JORGE, M.D. 2016-03-21 2016-03-21 [facility] UTP [id number] [place] 09:45:00 09:45:00 t; LIZ SHERIDAN, HERBER Emerson M.D. ans JORGE, M.D. 2016-02-28 2016-02-28 [facility] SE, ECHO UTP UTP [id number] [place] 11:00:00 11:00:00 t; SE, Physic i ECHO ans 2015-06-18 2015-06-18 refill [facility] [id number] 9-a Memoria 16:12:00 16:12:00 r Podiatry [id number] l Associates [id number] [facility] [id number] 2015-06-18 2015-06-18 refill [facility] [id number] 9-a Memoria 16:12:00 16:12:00 r Podiatry [id number] l Associates [id number] [facility] [id number] 2015-06-18 2015-06-18 Outpatient [facility] [id number] eClinic 11:12:00 11:12:00 Podiatry Podiatry Arya treviño [facility] Results Test Description Test Time Test Comments Results Result Comments Source Urine culture 2022-03-16 06:29:00 Test Item Value Reference Range Interpretation Comme nts Urine culture (test SEE NOTE CULTURE , URINE, ROUTINE Micro code = 630-4) Number: [id number] Test Status: Final Specimen Source: Not given Specimen Quality: Adequate Result : Mixed genital thomas i solated. These superficial kristin teria are not indicative of a urinary tract infection. No f urther organism identification is warranted on this specime n. If clinically danyell cated, recollect clean -catch, mid-stream urin e and transfer immediately to Urine Culture Transport Tube. RAC (test code = RAC) Performing Organization Information: Site ID: BREE Name: [facility] Address: [address] [place] [id number] Director: Juan Carlos Fleming [facility] Tyler Abdomen Pelvis Wo [id number] 02:05:41EXAMINATION: CT ABDOMEN PELVIS WO CONTRAST CLINICAL HISTORY: Flank pain kidney stone suspected TECHNIQUE: Multiple axial images of the abdomen and pelvis were obtained without intravenous administration of iodinated contrast. Sagittal and coronal computerized reformatted images were also obtained. Thelack of intravenous contrast reduces the sensitivity of detecting solid organ disease. CT imaging was performed with iterative reconstruction techniques and/or automated exposure control to reduce radiation dose. COMPARISON: None. FINDINGS: There is a complex hiatal hernia with a small sliding and large paraesophageal component associated with mesentero-axial rotation. There is trace stranding in thelower mediastinum around the herniated stomach with mild gastric distention. No free fluid or free air. No acute findings in the small bowel and colon. Small to moderate colonic stool burden. Normal appendix. No kidney stones or hydronephrosis. 1 cm cyst in the right kidney upper pole. Liver, pancreas, and spleen unremarkable. Cholelithiasis. Densely calcified uterine fibroids. Aorta is nondilated. Small umbilical hernia with fat. Bones are intact. IMPRESSION: No kidney stones or hydronephrosis. Large, predominantly paraesophageal hiatal hernia with mesentero-axial rotation of the stomach, of uncertain chronicity. Incidental findings as noted above. [id number] Interface, Radiology Results 01/08/2021 9:08 PM CDT EXAMINATION: CT ABDOMEN PELVIS WO CONTRASTCLINICAL HISTORY: Flank pain kidney stone suspectedTECHNIQUE: Multipleaxial images of the abdomen and pelvis were obtained without intravenous administration of iodinatedcontrast. Sagittal and coronal computerized reformatted images were also obtained. The lack of intravenous contrast reduces the sensitivity of detecting solid organ disease.CT imaging was performed with iterative reconstruction techniques and/or automated exposure control to reduce radiation dose.COMPARISON: None.FINDINGS:There is a complex hiatal hernia with a small sliding and large paraesophageal component associated with mesentero-axial rotation.There is trace stranding in the lower mediastinum around the herniated stomach with mild gastric distention. No free fluid or free air.No acute findings in the small bowel and colon. Small to moderate colonic stool burden. Normal appendix.No kidney stones or hydronephrosis. 1 cm cyst in the right kidney upper pole.Liver, pancreas, and spleen unremarkable.Cholelithiasis.Densely calcified uterine fibroids.Aorta is nondilated.Small umbilical hernia withfat.Bones are intact.IMPRESSION:No kidney stones or hydronephrosis.Large, predominantly paraesophageal hiatal hernia with mesentero-axial rotation of the stomach, of uncertain chronicity.Incidental findings as noted above.[id number] Preliminary Interpretation - Not an [id number] 00:18:20 Test Item Value Reference Range Interpretation Comments IMANI (test code = IMANI) Ursula Colon 01/08/2021 11:32 [facility] ED Preliminary Interpretation - Not an OrderPerformed by: Kuldeep ColoneAuthorized by: Ursula Colon ECG reviewed by ED Physician in the absence of a lens generating machine tender: yes Previous ECG: Previous ECG: UnavailableInterpretation : Interpretation: abnormal Rate: ECG rate: 75 ECG rate assessment: normal Rhythm: Rhythm: sinus rhythm Ectopy: Ectopy: none QRS: QRS axis: Normal QRS intervals: NormalConduction: Conduction: abnormal Abnormal conduction: complete RBBB ST segments: ST segments: NormalT waves: T waves: normal Lab Interpretation Abnormal (test code = 75552-4) [facility][] B TYPE NATRIURETIC PEPTIDE (BNP)2020-12-09 08:31:00 Test Item Value Reference Range Interpretation Comments B TYPE NATRIURETIC 18 pg/ml <100 N BNP level s increase with PEPTIDE (BNP) (test age in t he code = B TYPE generalpopulat ion with NATRIURETIC PEPTIDE the high est values seen (BNP)) inindividuals g reater than 75 years o f age.Reference: J. Am. Darline. Cardiol. 2002; 40:976-982. REPORT COMMENT:FASTING:[facility]] HEMOGLOBIN [id number] 11:59:01 Test Item Value Reference Range Interpretation Comments Hemoglobin A1c (test code = 4548-4) 5.1 % <=5.6 [place] [facility]
[2022-06-30 20:42] LABS: Urine Blood 3+ (Negative); Urine Glucose Trace (Negative); Urine Protein 3+ (Negative)
[2022-06-30 21:03] LABS: Urine Bacteria <20 /HPF (<20); Urine Crystals Unidentified Few /HPF (None Seen); Urine Mucus Slight /HPF (None Seen); Urine RBC >50 /HPF (None Seen); Urine WBC Clump Rare /HPF (None Seen)
[2022-06-30] MEDS ORDERED: FENTANYL CITR 100 MCG/2 ML ONE (22:08)
[2022-06-30] MEDS ORDERED: NA CHLORIDE 0.9% 1,000 ML ONE (22:08)
[2022-06-30] MEDS ORDERED: CEFTRIAXONE 1000 MG/VIAL ONE (22:08)
[2022-06-30] MEDS ORDERED: ONDANSETRON 4 MG/2 ML VIAL ONE (22:08)
[2022-06-30 22:39] LABS: Absolute Lymphocytes (CBC) 2.6 K/uL (0.7-4.9); Hematocrit 34.4 % (36.0-45.0); Lymphocytes % 34.5 % (15.3-44.8); MCV 79.1 fL (80-100); RBC Red Blood Cell Count 4.35 M/uL (3.86-4.86)
[2022-06-30 22:58] LABS: Albumin 3.9 g/dL (3.4-5.0); Bilirubin Total 0.3 mg/dL (0.2-1.0); Potassium 3.3 mmol/L (3.5-5.1); Protein, Total 7.8 g/dL (6.4-8.2)
[2022-07-01] MEDS ORDERED: SMZ./TMP. 800/160 MG TABLET ONE ×2 (00:50→00:51)
--- NOTE | 2022-07-01 01:24 | ER ---
Nurse's Notes [facility] Name: Leslie Burns Age: 76 yrs Sex: Female : 1945 Arrival Date: 06/30/2022 Time: 19:44 Bed 17 Private MD: Diagnosis: Acute cystitis without hematuria;Complete uterovaginal prolapse;UTI/ Urinary tract infection, site not specified;Pelvic and perineal pain Presentation: 06/30 20:29 Chief complaint: Patient states: "I feel like I need to pee so bad but then it hurts vc1 when I pee. I am in so much pain.". Ebola Screen: No symptoms or risks identified at this time. Initial Sepsis Screen: Does the patient meet any 2 criteria? HR > 90 bpm. No. Patient's initial sepsis screen is negative. Does the patient have a suspected source of infection? Yes: Dysuria/Frequency/Urgency/UTI. Risk Assessment: Do you want to hurt yourself or someone else? Patient reports no desire to harm self or others. Onset of symptoms is unknown. 20:29 Method Of Arrival: Ambulatory vc1 20:29 Acuity: KEILY 3 vc1 20:33 Chief complaint: Patient states: I started taking cipro, then I went to another ER they vc1 gave me a shot and changed it to Macrobid, I have a prolapsed bladder so I get UTIs but this is the worse it has been. Coronavirus screen: Vaccine status: Patient reports receiving the 2nd dose of the covid vaccine. [employer]; plus booster. Historical: - Allergies: 20:35 No Known Allergies; vc1 - PMHx: 20:35 Prolapsed Bladder; Hypertensive disorder; vc1 - PSHx: 20:35 None; vc1 - Immunization history:: Adult Immunizations up to date. - Social history:: Smoking status: Patient denies any tobacco usage or history of. - Family history:: not pertinent. Screenin:31 Abuse screen: Denies threats or abuse. Nutritional screening: No deficits noted. vc1 Tuberculosis screening: No symptoms or risk factors identified. Fall Risk None identified. Assessment: 21:25 General: Appears in no apparent distress. uncomfortable, Behavior is calm, cooperative, bm7 appropriate for age. Pain: Complains of pain in suprapubic area. Neuro: No deficits noted. Cardiovascular: No deficits noted. Respiratory: No deficits noted. GI: No deficits noted. No signs and/or symptoms were reported involving the gastrointestinal system. : Reports burning with urination, inability to void, pain urgency, urinary frequency. EENT: No deficits noted. No signs and/or symptoms were reported regarding the EENT system. Derm: No deficits noted. No signs and/or symptoms reported regarding the dermatologic system. Musculoskeletal: No deficits noted. No signs and/or symptoms reported regarding the musculoskeletal system. 23:13 Reassessment: Patient and/or family updated on plan of care and expected duration. Pain bm7 level reassessed. Patient is alert, oriented x 3, equal unlabored respirations, skin warm/dry/pink. Vital Signs: 20:28 Weight 78.02 kg; Height 5 ft. 7 in. (170.18 cm); Pain 10/10; vc1 20:29 BP 175 / 87; Pulse 108; Resp 18; Temp 98.0; Pulse Ox 98% ; vc1 23:13 BP 157 / 66; Pulse 72; Resp 16; Pulse Ox 100% on R/A; bm7 07/01 03:01 BP 152 / 70; Pulse 75; Resp 15; Pulse Ox 97% on R/A; ja4 06/30 20:28 Body Mass Index 26.94 (78.02 kg, 170.18 cm) vc1 ED Course: 06/30 19:44 Patient arrived in ED. bp1 19:53 Shankar Orellana MD is Attending Physician. royer 20:31 Triage completed. vc1 20:31 Arm band placed on left wrist. vc1 21:25 Andreia Briceno, RN is Primary Nurse. bm7 21:25 No apparent distress. Resting quietly. Awaiting ED provider evaluation. bm7 21:25 Patient has correct armband on for positive identification. Bed in low position. Call bm7 light in reach. Client placed on continuous cardiac and pulse oximetry monitoring. NIBP monitoring applied. Warm blanket given. 21:25 Patient maintains SpO2 saturation greater than 95% on room air. bm7 23:13 No provider procedures requiring assistance completed. Initial lab(s) drawn, by nj, bm7 sent to lab. Urine collected: clean catch specimen, cloudy. Inserted saline lock: 22 gauge in left antecubital area, using aseptic technique. Blood collected. Missed attempt(s): 20 gauge in right antecubital area. Bleeding controlled, band aid applied, catheter tip intact. 07/01 00:18 CT Abd/Pelvis - IV Contrast Only In Process Unspecified. EDSC 01:20 Juan Carlos Moss MD is Hospitalizing Provider. [facility] 03:01 IV discontinued, intact, bleeding controlled, No redness/swelling at site. Pressure ja4 dressing applied. Administered Medications: 06/30 22:31 Drug: Rocephin (cefTRIAXone) 1 grams Route: IV; Rate: per protocol; Site: left bm7 antecubital; 22:31 Drug: NS 0.9% 1000 ml Route: IV; Rate: 1 bolus; Site: left antecubital; 7 23:20 Follow up: IV Status: Completed infusion; IV Intake: 1000ml [facility] 22:31 Drug: fentaNYL (PF) 25 mcg Route: IVP; Site: left antecubital; 7 22:31 Drug: Zofran (Ondansetron) 4 mg Route: IVP; Site: left antecubital; 7 07/01 01:12 Drug: Bactrim (trimethoprim-sulfamethoxazole) (160 mg-800 mg (DS) 1 tablet Route: PO; ja4 01:12 Drug: Rocephin (cefTRIAXone) 1 grams Route: IV; Rate: per protocol; Site: right ja4 antecubital; 01:51 Drug: Meropenem 1 grams Route: IV; Rate: per protocol; Site: left antecubital; ja4 01:51 Drug: fentaNYL (PF) 25 mcg Route: IVP; Site: left antecubital; ja4 Medication: 06/30 21:25 VIS not applicable for this client. 7 Intake: 23:20 IV: 1000ml; Total: 1000ml. 7 Outcome: 07/01 01:23 Decision to Hospitalize by Provider. [facility] 02:29 Discharge ordered by . royer 03:01 Discharged to home ambulatory. [facility] 03:01 Condition: stable 03:01 Discharge instructions given to patient, Instructed on discharge instructions, follow up and referral plans. medication usage, Demonstrated understanding of instructions, follow-up care, medications, Prescriptions given X 3. 03:02 Patient left the ED. ja4 Signatures: Dispatcher [employer] EDSC Shankra Orellana MD MD cha Paniauga, Brittany bp1 McCarthy, Andreia, RN RN bm7 Arabella Pierce RN RN vc1 Jeremias Fang RN RN ja4
--- NOTE | 2022-07-01 01:24 | EDPHYS ---
Physician Documentation [facility] Name: Leslie Burns Age: 76 yrs Sex: Female : 1945 Arrival Date: 06/30/2022 Time: 19:44 Bed 17 Private MD: ED Physician Shankar Orellana HPI: 06/30 21:42 This 76 yrs old Female presents to ER via Ambulatory with complaints of UTI royer symptoms. 21:42 The patient presents with pelvic pain, urinary symptoms. Onset: The symptoms/episode royer began/occurred 10 day(s) ago. Modifying factors: The symptoms are alleviated by nothing, the symptoms are aggravated by nothing. Associated signs and symptoms: Pertinent positives: urinary frequency. Severity of symptoms: At their worst the symptoms were moderate, in the emergency department the symptoms are unchanged. The patient is not sexually active. The patient has experienced similar episodes in the past, multiple times. Historical: - Allergies: 20:35 No Known Allergies; vc1 - PMHx: 20:35 Prolapsed Bladder; Hypertensive disorder; vc1 - PSHx: 20:35 None; vc1 - Immunization history:: Adult Immunizations up to date. - Social history:: Smoking status: Patient denies any tobacco usage or history of. - Family history:: not pertinent. ROS: 21:42 Constitutional: Negative for fever, chills, and weight loss, Eyes: Negative for injury, royer pain, redness, and discharge, ENT: Negative for injury, pain, and discharge, Neck: Negative for injury, pain, and swelling, Respiratory: Negative for shortness of breath, cough, wheezing, and pleuritic chest pain, Back: Negative for injury and pain, : Negative for injury, bleeding, discharge, and swelling, MS/Extremity: Negative for injury and deformity, Skin: Negative for injury, rash, and discoloration, Neuro: Negative for headache, weakness, numbness, tingling, and seizure, Psych: Negative for depression, anxiety, suicide ideation, homicidal ideation, and hallucinations, Allergy/Immunology: Negative for hives, rash, and allergies, Endocrine: Negative for neck swelling, polydipsia, polyuria, polyphagia, and marked weight changes. 21:42 Neck: Positive for 21:42 Cardiovascular: Positive for palpitations. 21:42 Abdomen/GI: Positive for abdominal cramps, of the suprapubic area, right lower quadrant and left lower quadrant. 21:42 : Positive for urinary symptoms, urinary frequency, small amounts, hematuria, burning with urination. Exam: 21:42 Constitutional: This is a well developed, well nourished patient who is awake, alert, royer and in no acute distress. Head/Face: Normocephalic, atraumatic. Eyes: Pupils equal round and reactive to light, extra-ocular motions intact. Lids and lashes normal. Conjunctiva and sclera are non-icteric and not injected. Cornea within normal limits. Periorbital areas with no swelling, redness, or edema. ENT: Nares patent. No nasal discharge, no septal abnormalities noted. Tympanic membranes are normal and external auditory canals are clear. Oropharynx with no redness, swelling, or masses, exudates, or evidence of obstruction, uvula midline. Mucous membranes moist. Neck: Trachea midline, no thyromegaly or masses palpated, and no cervical lymphadenopathy. Supple, full range of motion without nuchal rigidity, or vertebral point tenderness. No Meningismus. Chest/axilla: Normal chest wall appearance and motion. Nontender with no deformity. No lesions are appreciated. Cardiovascular: Regular rate and rhythm with a normal S1 and S2. No gallops, murmurs, or rubs. Normal PMI, no JVD. No pulse deficits. Respiratory: Lungs have equal breath sounds bilaterally, clear to auscultation and percussion. No rales, rhonchi or wheezes noted. No increased work of breathing, no retractions or nasal flaring. Back: No spinal tenderness. No costovertebral tenderness. Full range of motion. Skin: Warm, dry with normal turgor. Normal color with no rashes, no lesions, and no evidence of cellulitis. MS/ Extremity: Pulses equal, no cyanosis. Neurovascular intact. Full, normal range of motion. Neuro: Awake and alert, GCS 15, oriented to person, place, time, and situation. Cranial nerves II-XII grossly intact. Motor strength 5/5 in all extremities. Sensory grossly intact. Cerebellar exam normal. Normal gait. Psych: Awake, alert, with orientation to person, place and time. Behavior, mood, and affect are within normal limits. 21:42 Abdomen/GI: Inspection: abdomen appears normal, Bowel sounds: normal, Palpation: moderate abdominal tenderness, in the right lower quadrant and left lower quadrant, Liver: no appreciated palpable abnormalities, Hernia: not appreciated. Vital Signs: 20:28 Weight 78.02 kg; Height 5 ft. 7 in. (170.18 cm); Pain 10/10; vc1 20:29 BP 175 / 87; Pulse 108; Resp 18; Temp 98.0; Pulse Ox 98% ; vc1 23:13 BP 157 / 66; Pulse 72; Resp 16; Pulse Ox 100% on R/A; bm7 07/01 03:01 BP 152 / 70; Pulse 75; Resp 15; Pulse Ox 97% on R/A; ja4 06/30 20:28 Body Mass Index 26.94 (78.02 kg, 170.18 cm) vc1 MDM: 06/30 19:53 Patient medically screened. [facility] 21:45 Differential diagnosis: kidney stone, nonspecific abdominal pain. Data reviewed: vital royer signs, nurses notes, lab test result(s), radiologic studies. Data interpreted: patent searcher: not applicable for this patient encounter. rate is 108 beats/min, rhythm is regular, Pulse oximetry: on room air is 108 %. Test interpretation: by ED physician or midlevel provider:. Counseling: I had a detailed discussion with the patient and/or guardian regarding: the historical points, exam findings, and any diagnostic results supporting the discharge/admit diagnosis, lab results, radiology results. 06/30 20:32 Order name: Urine Microscopic Only; Complete Time: 21:39 1 06/30 20:42 Order name: Urine Dipstick-Ancillary; Complete Time: 21:39 [facility] 06/30 21:07 Order name: Urine Culture [facility] 06/30 21:41 Order name: CBC with Diff; Complete Time: 23:00 [facility] 06/30 21:41 Order name: Comprehensive Metabolic Panel; Complete Time: 23:00 [facility] 06/30 21:41 Order name: CT Abd/Pelvis - IV Contrast Only [facility] 06/30 20:32 Order name: Urine Dipstick-Ancillary (obtain specimen); Complete Time: 21:25 vc1 Administered Medications: 22:31 Drug: Rocephin (cefTRIAXone) 1 grams Route: IV; Rate: per protocol; Site: left bm7 antecubital; 22:31 Drug: NS 0.9% 1000 ml Route: IV; Rate: 1 bolus; Site: left antecubital; bm7 23:20 Follow up: IV Status: Completed infusion; IV Intake: 1000ml bm7 22:31 Drug: fentaNYL (PF) 25 mcg Route: IVP; Site: left antecubital; bm7 22:31 Drug: Zofran (Ondansetron) 4 mg Route: IVP; Site: left antecubital; bm7 07/01 01:12 Drug: Bactrim (trimethoprim-sulfamethoxazole) (160 mg-800 mg (DS) 1 tablet Route: PO; ja4 01:12 Drug: Rocephin (cefTRIAXone) 1 grams Route: IV; Rate: per protocol; Site: right ja4 antecubital; 01:51 Drug: Meropenem 1 grams Route: IV; Rate: per protocol; Site: left antecubital; 4 01:51 Drug: fentaNYL (PF) 25 mcg Route: IVP; Site: left antecubital; ja4 Disposition Summary: 07/01/22 02:29 Discharge Ordered Location: Home(07/01/22 02:29) royer Problem: new(07/01/22 02:29) royer Symptoms: have improved(07/01/22 02:29) royer Condition: Stable(07/01/22 02:29) royer Diagnosis - Acute cystitis without hematuria royer - Complete uterovaginal prolapse(07/01/22 02:29) royer - UTI/ Urinary tract infection, site not specified(07/01/22 02:29) royer - Pelvic and perineal pain royer Followup: royer - With: Private Physician - When: 2 - 3 days - Reason: Recheck today's complaints, Continuance of care, Re-evaluation by your physician Discharge Instructions: - Discharge Summary Sheet royer - Dysuria royer - Pelvic Pain, Female royer - Urinary Tract Infection, Adult royer - Urinary Tract Infection, Adult, [id number] royer - Antibiotic Medicine, Adult royer Forms: - Medication Reconciliation Form royer - Thank You Letter royer - Antibiotic Education royer - Prescription Opioid Use royer Prescriptions: - Pyridium 200 mg Oral Tablet - take 1 tablet by ORAL route every 8 hours for 3 days; 9 tablet; Refills: 0, royer Product Selection Permitted - Bactrim DS 800-160 mg Oral Tablet - take 1 tablet by ORAL route every 12 hours for 7 days; 14 tablet; Refills: 0, royer Product Selection Permitted - cefpodoxime 200 mg Oral Tablet - take 2 tablets by ORAL route every 12 hours with food; 28 tablet; Refills: 0, royer Product Selection Permitted - Tylenol-Codeine #3 300 mg-30 mg Oral - take 2 tablet by ORAL route every 6 hours; 20 tablet; Refills: 0, Product royer Selection Permitted Signatures: Dispatcher [employer] EDShankar Grajeda MD MD cha Garcia, Cindy RN RN cg Andreia Briceno RN RN bm7 Arabella Pierce RN RN vc1 Jeremias Fang RN RN ja4 Corrections: (The following items were deleted from the chart) 01:23 01:23 Acute cystitis royer royer 01:23 Telemetry/MedSurg (Inpatient) royer cg : 01:23 royer cg 01:23 Inpatient Admission royer royer 01:23 Ajay, Juan Carlos royer royer 01:23 Stable royer royer 01:23 an ongoing problem royer royer 01:23 have worsened royer royer 01:23 Standard royer royer 01:23 Calculus of gallbladder without cholecystitis royer royer 01:23 Complete uterovaginal prolapse royer royer 01:23 UTI/ Urinary tract infection, site not specified royer royer 01:23 Acute cystitis - failed out patient treatment, hx esbl royer royer 01:28 [facility] ER HOLD cg royer 01:28 ERHOLD- cg royer
[2022-07-01] MEDS ORDERED: Meropenem 1000 MG/VIAL IV ONE (01:55)
[2022-07-01] MEDS ORDERED: FENTANYL CITR 100 MCG/2 ML ONE (01:56)
[2022-07-01] MEDS ORDERED: NA CHLORIDE 0.9% 100 ML ONE (01:56)
--- NOTE | 2022-07-01 22:18 | RAD REPORT ---
EXAM DESCRIPTION: CT - Abdomen Pelvis W Contrast - 07/01/2022 12:17 am CLINICAL HISTORY: Abdominal pain, acute, nonlocalized TECHNIQUE: Axial computed tomography images of the abdomen and pelvis with intravenous contrast. S agittal and coronal reformatted images were created and reviewed. This CT exam was performed using one or more of the following dose reduction techniques: automated exposure control, adjustment of t he mA and/or kV according to patient size, and/or use of iterative reconstruction technique. COMPARISON: No relevant prior studies available. FINDINGS: Lung bases: Bibasilar subsegmental atelectasis/pleural parenchymal scar. Mediastinum: Large hiatal hernia containing the majority of the stomach. ABDOMEN: Liver: Unremarkable. No mass. Gallbladder and bile ducts: Large gallstones within a contracted gallbladder. Pancreas: Unremarkable. No mass. No ductal dilation. Spleen: Unremarkable. No splenomegaly. Adrenals: Unremarkable. No mass. Kidneys and ureters: Unremarkable. No solid mass. No hydronephrosis. Stomach and bowel: Colonic diverticula without adjacent inflammatory change. Moderate stool within the proximal to mid large bowel. No obstruction. No appreciable mucosal thickening. PELVIS: Appendix: Normal caliber appendix. No findings to suggest acute appendicitis. Bladder: Moderate urinary bladder wall thickening with infiltrative changes in the perivesical fat. Reproductive: Multiple calcified uterine fibroids. No adnexal mass. ABDOMEN and PELVIS: Intraperitoneal space: Unremarkable. No free air. No significant fluid collection. Bones/joints: Multilevel spondylosis. No acute fracture. No dislocation. Soft tissues: Small fat-containing umbilical hernia. Small to moderate fat-containing bilateral ing uinal hernias. Vasculature: Moderate atherosclerotic disease. No abdominal aortic aneurysm. Lymph nodes: Unremarkable. No enlarged lymph nodes. IMPRESSION: 1. Findings suggestive of cystitis. 2. Other findings as above. Electronically signed by: Monica Bill MD 07/01/2022 12:42 AM CDT Due to temporary technical issues with the PACS/Fluency reporting system, reports are being signed by the in house radiologists without review as a courtesy to insure prompt reporting. The interpreting radiologist is fully responsible for the content of the report.
[2022-07-02 14:27] VITALS: TEMP 98
[2022-07-02 14:31] VITALS: BP 152/70; O2SAT 97
== END 2022-07-01 03:02 | disposition home or self-care (01) ==
LOC: ER 19:41
DX: N30.00 Acute cystitis without hematuria (principal); N81.3 Complete uterovaginal prolapse; I10 Essential (primary) hypertension
CPT/HCPCS: 87088; 85025; 87086; 36415; 80053; 74177; 99284; Q9967; J3010 ×2; J2185; J7030; J2405; 81003; 81015